=== PATIENT | male | born 1975 | race African-American/Black ===

== ENCOUNTER 2017-11-30 00:56 | Emergency (ER) | payer OTHER ==
--- NOTE | 2017-11-30 01:07 | PDOC ---
History of Present Illness - General Stated Complaint: HAND INJURY Time Seen by Provider: 11/30/17 01:00 History Source: Patient Exam Limitations: No Limitations - History of Present Illness Initial Comments: 11/30/17 02:29 42-year-old male who is right hand dominant presents to the emergency department complaining of pain to the right hand. Patient states a door closed on his right hand 10 hours ago causing 5/10 dull intermittent discomfort which is exacerbated on movement/touch and alleviated minimally at rest. Patient denies wrist, elbow pain. Patient denies any other complaints. Patient adamantly denies punching another person/wall. Timing/Duration: other (x10hrs) Past History - Past Medical History Home Medications: Ambulatory Orders Oxycodone HCl/Acetaminophen [Percocet 5-325 mg Tablet] 1 tab PO Q6H #15 tablet MDD 4 11/30/17 Review of Systems - Review of Systems Able to Perform ROS?: Yes Comments:: 11/30/17 02:30 CONSTITUTIONAL: Absent: fever, chills, diaphoresis, generalized weakness, malaise, loss of appetite MUSCULOSKELETAL: Absent: myalgia, arthralgia, joint swelling SKIN: Absent: rash, itching, pallor Right hand pain/swelling Is the patient limited Vincentian proficient: No *Physical Exam - Physical Exam Comments: 11/30/17 02:30 GENERAL: Well developed, well nourished. Awake and alert. No acute distress. MUSCULOSKELETAL Normal range of motion at all joints. No bony deformities or tenderness. No CVA tenderness. EXTREMITIES: +Right hand +swelling Decreased R/o/m/pain Cap refill <2sec No cyanosis. No clubbing. No edema. No calf tenderness. SKIN: Warm and dry. Normal capillary refill. No rashes. No jaundice. ED Treatment Course - RADIOLOGY Radiology Studies Ordered: Category Date Time Status HAND- RIGHT [RAD] Stat Radiology 11/30/17 01:06 Ordered Radiograph Interpretation: 11/30/17 01:32 X-ray right hand shows a transverse volar displaced fracture to the fourth and fifth metacarpal. 11/30/17 02:23 post reduction: successsful in reduction Medical Decision Making - Medical Decision Making 11/30/17 02:31 42-year-old [id number] comes in complaining of right hand pain. Right hand x-ray noted to have a close [place] displaced transverse fourth metacarpal fracture along with a nondisplaced transverse right fifth metacarpal. Ulnar gutter Ortho-Glass splint apply with successful reduction/x-ray shows dorsal displacement of the fourth metacarpal has been successfully reduced. Patient informed to keep it elevated and follow with also within 48 hours. Percocet prescription for pain. *DC/Admit/Observation/Transfer Diagnosis at time of Disposition: Closed right hand fracture Qualifiers: Encounter type: initial encounter Qualified Code(s): S62.91XA - Unspecified fracture of right wrist and hand, initial encounter for closed fracture - Discharge Dispostion Disposition: HOME Condition at time of disposition: Stable Admit: No - Prescriptions Prescriptions: Oxycodone HCl/Acetaminophen [Percocet 5-325 mg Tablet] 1 tab PO Q6H #15 tablet MDD 4 - Referrals Referrals: Meng Kamara MD [Staff Physician] - - Patient Instructions Printed Discharge Instructions: DI for a Hand Fracture Additional Instructions: Ice; 20 mins on alternating with 20 mins off for 48 hours while awake. Rest Elevate Follow up with your orthopedic surgeon or the one listed on the discharge form. Return to the ER for severe/persistent/worsening symptoms, extremity numbness/ tingling sensation. - Post Discharge Activity Progress Note - Progress Note Progress Note: Right hand Ulnar gutter splint /ortho glass applied reduced with hyperflexing wrist applying pressure to 4th mc head dorsally while applying prssure base of 4th mc base volar
[2017-11-30 01:18] VITALS: BP 156/97; PULSE 85; TEMP 97.8; BMI 23.1
== END 2017-11-30 02:39 | disposition home or self-care (01) ==
LOC: JER 00:56
PROC: 0PSPXZZ Reposition Right Metacarpal, External Approach (ICD-10-PCS; principal; 2017-11-30)
PROC: 0PSPXZZ Reposition Right Metacarpal, External Approach (ICD-10-PCS; 2017-11-30)
PROC: 2W3CX1Z Immobilization of Right Lower Arm using Splint (ICD-10-PCS; 2017-11-30)
DX: S62.314A Displaced fracture of base of fourth metacarpal bone, right hand, initial encounter for closed fracture (principal); S62.316A Displaced fracture of base of fifth metacarpal bone, right hand, initial encounter for closed fracture; W23.0XXA Caught, crushed, jammed, or pinched between moving objects, initial encounter; Y93.89 Activity, other specified; Y92.038 Other place in apartment as the place of occurrence of the external cause
CPT/HCPCS: 26605; 29125; 73130-TC-RT; 99282-25

== ENCOUNTER 2017-12-07 19:44 | Emergency (ER) | payer OTHER ==
[2017-12-07 19:50] VITALS: BP 146/85; PULSE 87; TEMP 99.3; BMI 23.7
[2017-12-07] MEDS ORDERED: IBUPROFEN 400 MG TABLET (FP) PO ONE ×2 (20:15→20:21)
--- NOTE | 2017-12-07 20:20 | PDOC ---
History of Present Illness - General Chief Complaint: Injury Stated Complaint: SWOLLEN HAND Time Seen by Provider: 12/07/17 20:02 History Source: Patient Exam Limitations: No Limitations - History of Present Illness Initial Comments: 12/07/17 20:18 Patient is a 42-year-old male who presents to the emergency department today complaining of a right swollen hand. The patient is right hand dominant. Patient was seen in our emergency department on 11/30/2017, after getting his hand caught in a door. He was diagnosed with 2 fractures of his fourth and fifth metacarpals. He was splinted at that time and discharged home with vital follow-up. Today patient arrives stating that his hand is very swollen and it hurts. He states that he took the splint off approximately 2 days ago because he didn't feel like the ice was getting through the splint to help with the swelling. He states that now his hand is very swollen and he can't bend his fingers. He has not made an appointment to follow-up with orthopedics yet. Denies fevers, chills, recent illness. Past History - Past Medical History Allergies/Adverse Reactions: Allergies Allergy/AdvReac Type Severity Reaction Status Date / Time No Known Allergies Allergy Verified 12/07/17 19:50 Home Medications: Ambulatory Orders Oxycodone HCl/Acetaminophen [Percocet 5-325 mg Tablet] 1 tab PO Q6H #15 tablet MDD 4 11/30/17 Ibuprofen 800 mg PO TID #30 tablet 12/07/17 Oxycodone HCl/Acetaminophen [Percocet 5-325 mg Tablet] 1 tab PO Q6H PRN #10 tablet MDD 4 12/07/17 COPD: No - Immunization History Immunization Up to Date: Yes - Suicide/Smoking/Psychosocial Hx Smoking History: Current every day smoker Have you smoked in the past 12 months: Yes Number of Cigarettes Smoked Daily: 6 Information on smoking cessation initiated: No Hx Alcohol Use: No Drug/Substance Use Hx: No Substance Use Type: None Review of Systems - Review of Systems Able to Perform ROS?: Yes Comments:: 12/07/17 21:37 CONSTITUTIONAL: Absent: fever, chills, diaphoresis, generalized weakness, malaise, loss of appetite HEENT: Absent: rhinorrhea, nasal congestion, throat pain, throat swelling, difficulty swallowing, mouth swelling, ear pain, eye pain, visual Changes CARDIOVASCULAR: Absent: chest pain, loss of consciousness, palpitations, irregular heart rate, peripheral edema RESPIRATORY: Absent: cough, shortness of breath, dyspnea with exertion, orthopnea, wheezing, stridor, hemoptysis GASTROINTESTINAL: Absent: abdominal pain, abdominal distension, nausea, vomiting, diarrhea, constipation, melena, hematochezia GENITOURINARY: Absent: dysuria, frequency, urgency, hesitancy, hematuria, flank pain, genital pain MUSCULOSKELETAL: Present: R hand pain and swelling Absent: arthralgia, SKIN: Absent: rash, itching, pallor HEMATOLOGIC/IMMUNOLOGIC: Absent: easy bleeding, easy bruising, lymphadenopathy, frequent infections ENDOCRINE: Absent: unexplained weight gain, unexplained weight loss, heat intolerance, cold intolerance NEUROLOGIC: Absent: headache, focal weakness or paresthesias, dizziness, unsteady gait, seizure, mental status changes, bladder or bowel incontinence PSYCHIATRIC: Absent: anxiety, depression, suicidal or homicidal ideation, hallucinations. Is the patient limited Albanian proficient: No *Physical Exam - Vital Signs Last Vital Signs Temp Pulse Resp BP Pulse Ox 99.3 F 87 18 146/85 96 12/07/17 19:45 12/07/17 19:45 12/07/17 19:45 12/07/17 19:45 12/07/17 19:45 - Physical Exam Comments: 12/07/17 21:35 GENERAL: The patient is awake, alert, and fully oriented, in no acute distress. HEAD: Normal with no signs of trauma. EYES: Pupils equal, round and reactive to light, extraocular movements intact, sclera anicteric, conjunctiva clear. EXTREMITIES: Right hand grossly swollen of the dorsal side. Patient is able to flex and extend his fourth and fifth metacarpals with significant pain. Radial pulses 2+ and regular. Strength of the R hand 3/5. Normal range of motion of all other extremities. No edema to other extremities. NEUROLOGICAL: Normal speech, normal gait. PSYCH: Normal mood, normal affect. SKIN: Warm, Dry, normal turgor, no rashes or lesions noted. Procedures - Splinting Splint Location: Right: Wrist Pre-Proc Neuro Vasc Exam: normal Hand-Made Type: orthoglass Splint Type: Yes: Ulnar (gutter splint) Post-Proc Neuro Vasc Exam: unchanged from pre-exam Mk Bandage: 4" Sling: Yes ED Treatment Course - RADIOLOGY Radiology Studies Ordered: Category Date Time Status HAND- RIGHT [RAD] Stat Radiology 12/07/17 20:10 Ordered Medical Decision Making - Medical Decision Making 12/07/17 21:38 Repeat hand x-ray shows that the fourth and fifth metacarpals are still grossly fractured. Patient was placed in a new ulnar gutter splint and stressed the importance of wearing it until he can see orthopedics. I emphasized the need to see orthopedics as soon as possible to get treatment for his hand. Patient understands that he needs to call to make an appointment as soon as possible. Patient instructed to take ibuprofen and to ice and elevate the hand. Patient was also given a sling. Discharged home with strict return precautions. Patient understands all discharge planning and all questions were answered. *DC/Admit/Observation/Transfer Diagnosis at time of Disposition: Closed right hand fracture Qualifiers: Encounter type: subsequent encounter Fracture healing: with routine healing Qualified Code(s): S62.91XD - Unspecified fracture of right wrist and hand, subsequent encounter for fracture with routine healing - Discharge Dispostion Disposition: HOME Condition at time of disposition: Good Admit: No - Prescriptions Prescriptions: Ibuprofen 800 mg PO TID #30 tablet Oxycodone HCl/Acetaminophen [Percocet 5-325 mg Tablet] 1 tab PO Q6H PRN #10 tablet MDD 4 PRN Reason: Pain - Referrals Referrals: Thomas Koch MD [Staff Physician] - - Patient Instructions Printed Discharge Instructions: How to Use a Sling, DI for a Hand Fracture Additional Instructions: You have a broken hand. Please take the ibuprofen 800 mg 3 times a day to help with swelling. Please ice the hand for 20 minute intervals 5 times a day. You may ice over the splint. Your also prescribed Percocet as needed for breakthrough pain. Please use the sling while you're awake to help with swelling. Please see orthopedics as soon as possible. Return to the emergency department if you have worsening pain, worsening swelling, numbness and tingling in her hand or any changes in your symptoms. - Post Discharge Activity Forms/Work/School Notes: Back to Work
== END 2017-12-07 21:31 | disposition home or self-care (01) ==
LOC: JERFT 19:44
PROC: 2W3CX1Z Immobilization of Right Lower Arm using Splint (ICD-10-PCS; principal; 2017-12-07)
PROC: 2W3DX1Z Immobilization of Left Lower Arm using Splint (ICD-10-PCS; 2017-12-07)
DX: S62.394D Other fracture of fourth metacarpal bone, right hand, subsequent encounter for fracture with routine healing (principal); S62.396D Other fracture of fifth metacarpal bone, right hand, subsequent encounter for fracture with routine healing; Y92.410 Unspecified street and highway as the place of occurrence of the external cause; Y93.89 Activity, other specified; Y99.8 Other external cause status
CPT/HCPCS: 29125; 73130-TC-RT; 99282-25

== ENCOUNTER 2018-07-03 09:14 | Emergency (ER) | payer OTHER ==
--- NOTE | 2018-07-03 09:23 | PDOC ---
History of Present Illness - General Chief Complaint: Wound Stated Complaint: RIGHT LEG BOIL Time Seen by Provider: 07/03/18 09:17 History Source: Patient Exam Limitations: No Limitations - History of Present Illness Initial Comments: 07/03/18 09:32 Mr Aguila is a 43 yo M who presents to the ER for evaluation of several right thigh abscess Pt states he noted them approximately 5 days ago They increased in size and became painful He then open up two of these lesions with a pin Since then, he has noted persistent drainage No fevers or chills Pt continues to have pain but it is not as severe as previously No prior Abscesses in the past No prior cellulitis in the past Has not seen a pmd for this PMH: denies PSH: denies Meds: denies ALL: NKDA Social: (+) tobacco use, denies drugs, denies alcohol Unemployed at this time FH: non contributory ROS: GENERAL/CONSTITUTIONAL: No: fever, chills, HEAD, EYES, EARS, NOSE AND THROAT: No: change in vision, ear pain, discharge, sore throat, throat swelling. CARDIOVASCULAR: No: chest pain, lightheadedness RESPIRATORY: No: cough, shortness of breath, wheezing GASTROINTESTINAL: No: nausea, vomiting, diarrhea, abdominal pain GENITOURINARY: No: dysuria, hematuria, MUSCULOSKELETAL: No: back pain, neck pain, joint pain, muscle swelling or pain SKIN: (+) right thigh abscesses NEUROLOGIC: No: headache, vertigo, paresthesias, weakness ENDOCRINE: No: unexplained weight gain or loss HEMATOLOGIC/LYMPHATIC: No: anemia, easy bleeding, swelling nodes. PE: GENERAL: The patient is in no acute distress. HEAD: Normal EYES: PERRLA, EOMI, sclera anicteric, conjunctiva clear. ENT: Ears normal, nares patent, oropharynx clear without exudates. Moist mucous membranes. NECK: Normal range of motion, supple without lymphadenopathy, JVD, or masses. LUNGS: Breath sounds equal, clear to auscultation bilaterally. No wheezes, and no crackles. HEART:Regular rate and rhythm, normal S1 and S2 without murmur, rub or gallop. ABDOMEN: Soft, nontender, normoactive bowel sounds. EXTREMITIES: Normal range of motion, no edema. No clubbing or cyanosis. No erythema, or tenderness. NEUROLOGICAL: Cranial nerves II through XII grossly intact. Normal speech. No focal neurological deficits. MUSCULOSKELETAL: Back non-tender to palpation, no CVA tenderness SKIN: Warm, Dry, Three lesions noted: Right lateral thigh - (+) open draining wound noted, no surrounding erythema or induration, (+) 1cm area f skin which appears ulcerated Right medial thigh (inferiorly) - (+) open draining wound noted, no surrounding erythema or induration, (+) 1.5 cm area f skin which appears ulcerated Right medial thigh (superiorly) - area of induration noted, no fluctuance noted , no expressible purulence 07/03/18 09:41 Past History - Past Medical History Allergies/Adverse Reactions: Allergies Allergy/AdvReac Type Severity Reaction Status Date / Time No Known Allergies Allergy Verified 07/03/18 09:26 Home Medications: Ambulatory Orders Bifidobacterium Infantis [Align] 10.5 mg PO DAILY #10 tab.chew 07/03/18 Cephalexin [Keflex] 500 mg PO Q6H #28 capsule 07/03/18 Ibuprofen [Motrin -] 600 mg PO TID PRN #21 tablet 07/03/18 Sulfamethoxazole/Trimethoprim [Bactrim Ds -] 1 tab PO BID #14 tablet 07/03/18 COPD: No - Immunization History Immunization Up to Date: Yes - Suicide/Smoking/Psychosocial Hx Smoking History: Current every day smoker Have you smoked in the past 12 months: Yes Number of Cigarettes Smoked Daily: 6 Hx Alcohol Use: No Drug/Substance Use Hx: No Substance Use Type: None Medical Decision Making - Medical Decision Making 07/03/18 09:49 43 yo M with multiple draining wounds Pt has no prior history of this, no health care exposure ? folliculitis ? MRSA Will discharge to home Will ask pt to apply warm compresses, take motrin for pain Will give Keflex and Bactrim Will also prescribe Align Clinical impression: Right thigh abscesses/folliculitis, initial presentation *DC/Admit/Observation/Transfer Diagnosis at time of Disposition: Abscess of leg, right - Discharge Dispostion Disposition: HOME Condition at time of disposition: Stable Decision to Admit order: No - Prescriptions Prescriptions: Bifidobacterium Infantis [Align] 10.5 mg PO DAILY #10 tab.chew Cephalexin [Keflex] 500 mg PO Q6H #28 capsule Ibuprofen [Motrin -] 600 mg PO TID PRN #21 tablet PRN Reason: Pain Sulfamethoxazole/Trimethoprim [Bactrim Ds -] 1 tab PO BID #14 tablet - Referrals Referrals: Juan Carlos Faria MD [Staff Physician] - - Patient Instructions Printed Discharge Instructions: Serious Ways to Stop Smoking, DI for Skin Abscess Additional Instructions: Mr Velasquez Thank you for coming in to the ER today Please apply a warm compress to the abscesses, at least 3 times per day Please take motrin 600mg every 8 hours for pain Please monitor yourself for fevers or chills Please follow up with a primary care physician You will get a call either today or Friday for follow up at the [facility] clinic - Post Discharge Activity
[2018-07-03 09:34] VITALS: BP 149/89; PULSE 75; TEMP 97.7; BMI 24.2
== END 2018-07-03 10:06 | disposition home or self-care (01) ==
LOC: FER 09:14
DX: L02.415 Cutaneous abscess of right lower limb (principal); F17.210 Nicotine dependence, cigarettes, uncomplicated
CPT/HCPCS: 99281-25

== ENCOUNTER 2021-08-20 20:29 | Emergency (ER) | payer SELFPAY ==
[2021-08-20 20:43] VITALS: BP 122/65; PULSE 105; TEMP 98.2; BMI 21.9
[2021-08-20] MEDS ORDERED: PENICILLIN G BENZATHINE 1,200,000 UNIT/2 ML PFS IM ONE ×2 (22:07→22:09)
[2021-08-20] MEDS ORDERED: DEXAMETHASONE LIQUID 0.5 MG/5 ML PO ONE (22:07)
[2021-08-20] MEDS ORDERED: DEXAMETHASONE SOD PHOSPHATE 10 MG/1 ML VIAL ONE (22:08)
== END 2021-08-20 22:39 | disposition home or self-care (01) ==
LOC: JERFT 20:29 → JER 20:29 → JERFT 22:39
PROC: 3E023GC Introduction of Other Therapeutic Substance into Muscle, Percutaneous Approach (ICD-10-PCS; principal; 2021-08-20)
DX: J02.9 Acute pharyngitis, unspecified (principal)
CPT/HCPCS: 87880; 99284-25